=== PATIENT | male | born 1930 | race Caucasian/White ===

== ENCOUNTER 2019-10-15 15:16 | Inpatient (IN) | payer MEDICARE ==
[~2019-10-15] VITALS: Ht 172.7 cm; Wt 83.9 kg
--- NOTE | 2019-10-15 15:31 | NUR ---
ASSUMED CARE OF PATIENT. PATIENT SEUN BHATTI FROM URGENT CARE. PT REPORTS SOME TIME AROUND 9 PT HAD TROUBLE PICKING UP OBJECTS WITH HIS RIGHT HAND. FAMILY REPOTS SLURRED SPEECH. SYPTOMS HAVE SINCE RESOLVED. VS STABLE. FAMILY AT [facility]. CALL LIGHT IN PLACE. WILL CONTINUE TO MONITOR.
--- NOTE | 2019-10-15 15:42 | NUR ---
Jeison brown in [facility] - 10/15/19 at 1543 by LHAFEN PT DISCHARGED PER DR BONDS.
--- NOTE | 2019-10-15 15:57 | NUR ---
PT WENT TO CT
[2019-10-15] MEDS ORDERED: SODIUM CHLORIDE FLUSH 10ML SYR IVF ONE (16:00)
[2019-10-15 16:16] LABS: BASOPHILS # (AUTO) 0.03 x10^3/uL (0-0.1); BASOPHILS % (AUTO) 0 % (0-1); EOSINOPHILS # (AUTO) 0.45 x10^3/uL (0-0.4); EOSINOPHILS % (AUTO) 6 % (1-7); LYMPHOCYTES # (AUTO) 1.06 x10^3/uL (1-3.4); LYMPHOCYTES % (AUTO) 13 % (22-44); MD NO; MEAN CORPUSCULAR HEMOGLOBIN 31.4 pg (27.5-34.5); MEAN CORPUSCULAR HGB CONC 33.2 g/dL (33.2-36.2); MEAN CORPUSCULAR VOLUME 94.4 fL (81-97); MONOCYTES # (AUTO) 0.71 x10^3/uL (0.2-0.8); MONOCYTES % (AUTO) 9 % (2-9); NEUTROPHILS # (AUTO) 5.85 x10^3/uL (1.8-6.8); NEUTROPHILS % (AUTO) 72 % (42-75); PLATELET COUNT 212 x10^3/uL (130-400); RED BLOOD COUNT 4.23 x10^6/uL (4.38-5.82); RED CELL DISTRIBUTION WIDTH 13.9 % (9.4-14.8)
[2019-10-15 16:27] LABS: ALANINE AMINOTRANSFERASE 36 U/L (12-78); ALBUMIN 3.2 g/dL (3.4-5.0); ANION GAP 5 mmol/L (5-15); CALCIUM 8.6 mg/dL (8.5-10.1); CHLORIDE 114 mmol/L (98-107); CREATININE 1.32 mg/dL (0.7-1.3); INTERNATIONAL NORMALIZED RATIO 1.01 (0.93-1.1); PROTHROMBIN TIME 10.6 Seconds (9.6-11.5)
[2019-10-15 16:31] LABS: ALKALINE PHOSPHATASE 102 U/L (45-117); BILIRUBIN,TOTAL 0.7 mg/dL (0.2-1.0); TOTAL PROTEIN 6.5 g/dL (6.4-8.2); TROPONIN I < 0.015 ng/mL (0.000-0.045)
[2019-10-15] MEDS ORDERED: ASPI81TA50 PO (16:57)
[2019-10-15] MEDS ORDERED: OMEG1CAP6 PO (16:58)
[2019-10-15] MEDS ORDERED: GLUCOSAMINE (16:59)
[2019-10-15] MEDS ORDERED: LISI-167 PO (16:59)
[2019-10-15] MEDS ORDERED: PROBIOTIC (17:00)
[2019-10-15] MEDS ORDERED: LUTE1CAP PO (17:00)
[2019-10-15] MEDS ORDERED: COQ-10 (17:01)
[2019-10-15] MEDS ORDERED: ATOR40TA78 PO (17:01)
[2019-10-15] MEDS ORDERED: IMIP25TA3 PO (17:02)
[2019-10-15] MEDS ORDERED: TURMERIC (17:03)
[2019-10-15] MEDS ORDERED: METO25TA35 PO (17:03)
[2019-10-15] MEDS ORDERED: MAGNESIUM (17:04)
[2019-10-15] MEDS ORDERED: PANT40GR PO (17:08)
--- NOTE | 2019-10-15 17:08 | NUR ---
PT RESTING IN ROOM. HIDE DROPPER ON. VS STABLE. CALL LIGHT IN PLACE. WILL CONTINUE TO MONITOR.
[2019-10-15] MEDS ORDERED: ASPIRIN 81 MG TABLET CHEW PO ONE (17:30)
[2019-10-15] MEDS ORDERED: ASPIRIN 81 MG TABLET CHEW ONE (17:47)
--- NOTE | 2019-10-15 18:09 | NUR ---
HOSPITALIST IN ROOM
--- NOTE | 2019-10-15 18:16 | NUR ---
REPORT GIVEN TO WEI AGRAWAL
[2019-10-15] MEDS ORDERED: LORazepam 2 MG/ML, 1ML ONE (18:21)
--- NOTE | 2019-10-15 18:28 | NUR ---
REPORT FROM WEI JONES. PT TAKEN TO MRI UPON REPORT.
[2019-10-15] MEDS ORDERED: SODIUM CHLORIDE FLUSH 10ML SYR IVF PRN (18:30)
[2019-10-15] MEDS ORDERED: LORazepam 2 MG/ML, 1ML IVPush ONE (18:30)
[2019-10-15] MEDS ORDERED: BISACODYL 10 MG SUPP PR PRN (19:00)
[2019-10-15] MEDS ORDERED: ACETAMINOPHEN 650 MG/20.3 ML UDC PO PRN (19:00)
[2019-10-15] MEDS ORDERED: ONDANSETRON 4 MG TABLET PO PRN (19:00)
--- NOTE | 2019-10-15 19:35 | NUR ---
PT RETURNED FROM MRI. NAD NOTED AT THIS TIME. RESPIRATIONS EVEN AND UNLABORED ON RA. WATCHING TELEVISION. MAKES JOKES WITH STAFF. PLEASANT. SIDE RAILS UP, CALL LIGHT IN REACH. AWAITING MED TELE BED.
[2019-10-15] MEDS ORDERED: OMNIPAQUE 350 MG/ML, 100ML BOTTLE ONE (19:45)
--- NOTE | 2019-10-15 19:47 | NUR ---
PT SWALLOWS FLUIDS WELL WITH NO S/S OF CHOKING, COUGHING, THROAT CLEARING. PT GIVEN CARDIAC DIET TRAY. REPORT GIVEN. AWAITING TRANSPORT TO FLOOR.
[2019-10-15 21:00] VITALS: BP 154/102
[2019-10-15] MEDS: ATORVASTATIN 80 MG TABLET PO SCH (21:18)
[2019-10-16 01:48] VITALS: BP 127/81
[2019-10-16 05:36] LABS: BASOPHILS # (AUTO) 0.03 x10^3/uL (0-0.1); BASOPHILS % (AUTO) 0 % (0-1); EOSINOPHILS # (AUTO) 0.46 x10^3/uL (0-0.4); EOSINOPHILS % (AUTO) 6 % (1-7); LYMPHOCYTES # (AUTO) 1.19 x10^3/uL (1-3.4); LYMPHOCYTES % (AUTO) 16 % (22-44); MD NO; MEAN CORPUSCULAR HEMOGLOBIN 31.1 pg (27.5-34.5); MEAN CORPUSCULAR HGB CONC 33.1 g/dL (33.2-36.2); MEAN PLATELET VOLUME 7.9 fL (7.4-10.4); MONOCYTES # (AUTO) 0.79 x10^3/uL (0.2-0.8); MONOCYTES % (AUTO) 10 % (2-9); NEUTROPHILS # (AUTO) 5.22 x10^3/uL (1.8-6.8); NEUTROPHILS % (AUTO) 68 % (42-75); PLATELET COUNT 204 x10^3/uL (130-400); RED BLOOD COUNT 4.06 x10^6/uL (4.38-5.82); RED CELL DISTRIBUTION WIDTH 14.2 % (9.4-14.8)
[2019-10-16 05:48] LABS: CHLORIDE 112 mmol/L (98-107)
[2019-10-16 05:56] LABS: ANION GAP 6 mmol/L (5-15); CALCIUM 8.4 mg/dL (8.5-10.1); CHOL/HDL RATIO 2.6; CHOLESTEROL, TOTAL 107 mg/dL (140-239); CREATININE 1.15 mg/dL (0.7-1.3); HDL CHOL % 38 % (26-37); HDL CHOLESTEROL (DIRECT) 41 mg/dL (40-60); LDL CHOLESTEROL,CALCULATED 40 mg/dL (54-169); TRIGLYCERIDES 129 mg/dL (50-200); VLDL CHOLESTEROL 26 mg/dL (0-25)
[2019-10-16 08:00] VITALS: BP 121/86
[2019-10-16] MEDS: ASPIRIN 325 MG TABLET PO SCH (08:55)
[2019-10-16] MEDS: OMEGA-3/FISH OIL CAPSULE PO SCH (08:55)
[2019-10-16] MEDS: IMIPRAMINE 25 MG TABLET PO SCH (08:55)
[2019-10-16] MEDS ORDERED: LUTEIN PO SCH (09:00)
[2019-10-16] MEDS ORDERED: ZEAXANTHIN PO SCH (09:00)
--- NOTE | 2019-10-16 10:36 | NUR ---
REC REGULAR/THIN LIQUIDS; ORANGE SHEET WITH DIET RECS AND SWALLOW STRATEGIES POSTED AT BEDSIDE. Addendum: 10/16/19 at 1036 by Merlyn DOUGLAS Amended: Links added.
[2019-10-16 12:00] VITALS: BP 124/66
[2019-10-16 16:12] VITALS: BP 140/92
[2019-10-16] MEDS: METOPROLOL TARTRATE 25 MG TABLET PO SCH (20:52)
[2019-10-16] MEDS: ATORVASTATIN 80 MG TABLET PO SCH (20:52)
[2019-10-16 21:30] VITALS: BP 153/92
[2019-10-17] VITALS (7 sets, daily range): BP systolic 119–154; BP diastolic 76–99
[2019-10-17] MEDS: OMEGA-3/FISH OIL CAPSULE PO SCH (09:18)
[2019-10-17] MEDS: IMIPRAMINE 25 MG TABLET PO SCH (09:18)
[2019-10-17] MEDS: CLOPIDOGREL 75 MG TABLET PO SCH (09:18)
[2019-10-17] MEDS: ASPIRIN 325 MG TABLET PO SCH (09:18)
[2019-10-17] MEDS: METOPROLOL TARTRATE 25 MG TABLET PO SCH ×2 (09:19→20:18)
[2019-10-17] MEDS: ATORVASTATIN 80 MG TABLET PO SCH (20:18)
[2019-10-18] VITALS (9 sets, daily range): BP systolic 122–150; BP diastolic 72–98
[2019-10-18 06:26] LABS: BASOPHILS # (AUTO) 0.05 x10^3/uL (0-0.1); BASOPHILS % (AUTO) 1 % (0-1); EOSINOPHILS # (AUTO) 0.46 x10^3/uL (0-0.4); EOSINOPHILS % (AUTO) 7 % (1-7); LYMPHOCYTES # (AUTO) 1.15 x10^3/uL (1-3.4); LYMPHOCYTES % (AUTO) 17 % (22-44); MD NO; MEAN CORPUSCULAR HEMOGLOBIN 31.1 pg (27.5-34.5); MEAN CORPUSCULAR HGB CONC 33.6 g/dL (33.2-36.2); MEAN CORPUSCULAR VOLUME 92.7 fL (81-97); MEAN PLATELET VOLUME 8.1 fL (7.4-10.4); MONOCYTES # (AUTO) 0.88 x10^3/uL (0.2-0.8); MONOCYTES % (AUTO) 13 % (2-9); NEUTROPHILS # (AUTO) 4.21 x10^3/uL (1.8-6.8); NEUTROPHILS % (AUTO) 62 % (42-75); PLATELET COUNT 194 x10^3/uL (130-400); RED BLOOD COUNT 4.18 x10^6/uL (4.38-5.82); RED CELL DISTRIBUTION WIDTH 13.9 % (9.4-14.8)
[2019-10-18 06:38] LABS: ANION GAP 4 mmol/L (5-15); CHLORIDE 108 mmol/L (98-107); CREATININE 1.22 mg/dL (0.7-1.3)
[2019-10-18] MEDS: ASPIRIN 325 MG TABLET PO SCH (08:43)
[2019-10-18] MEDS: IMIPRAMINE 25 MG TABLET PO SCH (08:44)
[2019-10-18] MEDS: CLOPIDOGREL 75 MG TABLET PO SCH (08:44)
[2019-10-18] MEDS: METOPROLOL TARTRATE 25 MG TABLET PO SCH ×2 (08:45→20:36)
[2019-10-18] MEDS: OMEGA-3/FISH OIL CAPSULE PO SCH (08:45)
[2019-10-18] MEDS: ATORVASTATIN 80 MG TABLET PO SCH (20:37)
[2019-10-19 01:33] VITALS: BP 118/73
[2019-10-19 08:06] VITALS: BP 127/85
[2019-10-19] MEDS: IMIPRAMINE 25 MG TABLET PO SCH (09:16)
[2019-10-19] MEDS: OMEGA-3/FISH OIL CAPSULE PO SCH (09:16)
[2019-10-19] MEDS: ASPIRIN 325 MG TABLET PO SCH (09:16)
[2019-10-19] MEDS: CLOPIDOGREL 75 MG TABLET PO SCH (09:17)
[2019-10-19] MEDS: METOPROLOL TARTRATE 25 MG TABLET PO SCH (09:17)
[2019-10-19] MEDS ORDERED: LISI-167 PO (11:15)
[2019-10-19] MEDS ORDERED: ATOR-2 PO (11:15)
[2019-10-19] MEDS ORDERED: CLOP75TA PO (11:15)
[2019-10-19] MEDS ORDERED: BISA10SU4 PR (11:15)
[2019-10-19] MEDS ORDERED: LIDOCAINE 1%, 10ML ONE (12:55)
[2019-10-19 13:29] VITALS: BP 130/83
== END 2019-10-19 13:50 | disposition home health service (06) | DRG 65 ==
LOC: ED 17:28 → EDIP 17:29 → 4WST 20:05
PROVIDERS: ADMIT Internal Medicine; ATTEND Hospitalist
PROC: 0S9C3ZZ Drainage of Right Knee Joint, Percutaneous Approach (ICD-10-PCS; principal; 2019-10-19)
DX: I63.9 Cerebral infarction, unspecified (principal); G81.91 Hemiplegia, unspecified affecting right dominant side; I11.9 Hypertensive heart disease without heart failure; N28.9 Disorder of kidney and ureter, unspecified; E78.5 Hyperlipidemia, unspecified; R27.8 Other lack of coordination; R29.703 NIHSS score 3; I25.10 Atherosclerotic heart disease of native coronary artery without angina pectoris; Z66 Do not resuscitate; F40.240 Claustrophobia; M25.461 Effusion, right knee; M19.012 Primary osteoarthritis, left shoulder; M19.011 Primary osteoarthritis, right shoulder; M17.0 Bilateral primary osteoarthritis of knee; Z79.82 Long term (current) use of aspirin; Z79.899 Other long term (current) drug therapy; Z80.0 Family history of malignant neoplasm of digestive organs; Z80.3 Family history of malignant neoplasm of breast; Z95.5 Presence of coronary angioplasty implant and graft; R27.0 Ataxia, unspecified; I65.23 Occlusion and stenosis of bilateral carotid arteries
CPT/HCPCS: 20611; 36415; 70450; 70496; 70498; 70551; 80048; 80053; 80061; 83735; 83880; 84100; 84484; 85025; 85610; 85730; 85810; 87070; 87075; 87205; 89050; 89060; 93005; 93306; 96374; 99285; G0378; Q9967; 92523-GN; J2060

== ENCOUNTER → 2021-03-10 | Outpatient (CLI) | payer MEDICARE ==
[~2021-03-10] MED LIST: ASPI81TA50 PO; ATOR-2 PO; ATOR40TA78 PO; BISA10SU4 PR; CLOP75TA PO; COQ-10; GLUCOSAMINE; IMIP25TA3 PO; LISI-167 PO; LUTE1CAP PO; MAGNESIUM; METO25TA35 PO; OMEG1CAP6 PO; PANT40GR PO; PROBIOTIC; TURMERIC
== END | disposition home or self-care (01) ==
LOC: CVU 08:18
PROVIDERS: ATTEND Internal Medicine Cardiovascular Disease
DX: I65.22 Occlusion and stenosis of left carotid artery (principal); I77.1 Stricture of artery; I10 Essential (primary) hypertension; I67.9 Cerebrovascular disease, unspecified; I63.9 Cerebral infarction, unspecified; Z86.73 Personal history of transient ischemic attack (TIA), and cerebral infarction without residual deficits
CPT/HCPCS: 93880